=== PATIENT | male | born 1975 | race Caucasian/White ===

== ENCOUNTER 2020-10-04 20:16 | Emergency (ER) | payer SELFPAY ==
[~2020-10-04] VITALS: Ht 185.4 cm; Wt 89.0 kg
[2020-10-04] MEDS ORDERED: NEOSPORIN OINT. PKT 1 PACKET ONE (20:20)
[2020-10-04] MEDS ORDERED: ONDANSETRON 2MG/ML, 2ML ONE (20:23)
[2020-10-04] MEDS ORDERED: MORPHINE SULFATE 4 MG/ML, 1ML ONE (20:23)
--- NOTE | 2020-10-04 20:25 | NUR ---
PT BIBA FROM HOME. PER EMS, PT WAS SMOKING DABS WHEN A PROPANE TANK IGNITED. PT HAS MERCADO TO R FOOT, L HAND, FACIAL HAIR IS SINGED C BLISTERS TO B/L EYELIDS & FOREHEAD. PT DENIES ANY SOB, NO WHEEZING NOTED. PT GIVEN 200MCG FENTANYL BY EMS.
[2020-10-04] MEDS ORDERED: MORPHINE SULFATE 4 MG/ML, 1ML IV PRN (20:30)
[2020-10-04] MEDS ORDERED: PLEASE ENTER HEIGHT AND WEIGHT MC SCH (20:30)
[2020-10-04] MEDS ORDERED: ONDANSETRON 2MG/ML, 2ML IVPush ONE (20:30)
[2020-10-04] MEDS ORDERED: SODIUM CHLORIDE FLUSH 10ML SYR IVF ONE (20:30)
[2020-10-04] MEDS ORDERED: SODIUM CHLORIDE 0.9% 1,000ML IVBOLUS ONE (20:30)
[2020-10-04] MEDS ORDERED: PLEASE ENTER ALLERGIES MC SCH (20:30)
--- NOTE | 2020-10-04 21:19 | NUR ---
CALLED , BRIDGETTE, . TO UPDATE HER PER PTS REQUEST, WHEN SPEAKING WITH BRIDGETTE, SHE STATES SHE IS NOT HIS & NOT TO BE UPDATED ON HIS CARE.
--- NOTE | 2020-10-04 21:24 | NUR ---
[employer]IST AT [employer]
--- NOTE | 2020-10-04 21:35 | NUR ---
DISCUSSED CONVERSATION I HAD Diana ANGELES, PT TEARFUL, FEARFUL THAT HE HAS NOTHING TO GO HOME TO WHEN DISCHARGED.
--- NOTE | 2020-10-04 22:06 | NUR ---
TECH AT BEDSIDE TO BANDAGE WOUNDS. PT REFUSED TO HAVE ANY BANDAGES ON THE EYE LIDS. MD AND RN NOTIFIED. FOREHEAD, NOSE, CHEEKS, LEFT 2-4TH DIGIT AND RIGHT FOOT DRESSED AND BANDAGED.
--- NOTE | 2020-10-04 22:36 | NUR ---
RENETTA WAYNE AT , PT IS GOING TO [facility], WAITING ON ANOTHER OFFICER FOR TANSPORT.
--- NOTE | 2020-10-04 23:35 | NUR ---
PT PLACED IN [facility] CUSTODY. WHEELED OUT OF ED C OFFICERS. REVIEWED DC INST C OFFICERS.
[2020-10-04 23:36] VITALS: BP 155/98
== END 2020-10-04 23:38 | disposition home or self-care (01) ==
LOC: ED 22:02
DX: T20.26XA Burn of second degree of forehead and cheek, initial encounter (principal); T23.232A Burn of second degree of multiple left fingers (nail), not including thumb, initial encounter; T25.291A Burn of second degree of multiple sites of right ankle and foot, initial encounter; T23.261A Burn of second degree of back of right hand, initial encounter; T26.02XA Burn of left eyelid and periocular area, initial encounter; T26.01XA Burn of right eyelid and periocular area, initial encounter; R94.31 Abnormal electrocardiogram [ECG] [EKG]; T31.0 Burns involving less than 10% of body surface
CPT/HCPCS: 16025; 93005; 96361; 96374; 96375; 99285; J2270; J2405; J7030; 99284